=== PATIENT | female | born 1990 | race Caucasian/White ===

== ENCOUNTER 2018-11-19 18:57 | Inpatient (IN) | payer OTHER ==
[~2018-11-19] VITALS: Ht 170.2 cm; Wt 64.6 kg
--- NOTE | 2018-11-19 19:24 | NUR ---
Dr. Basim BINGHAM MD at bedside to evaluate pt.
--- NOTE | 2018-11-19 19:26 | NUR ---
Pt ambulated into department with c/o LUE swelling x 1 week. Pt stated that it started with a pimple on her face that she had tried to pick. It eventually spread to her chest and down her LUE. Her peers advised her to take some leftover KEFLEX that they had, and advised, "just take a few, you do not have to take the full amount". She is c/o pain PS 04/23 and is limited ROM in her LUE.
--- NOTE | 2018-11-19 19:28 | NUR ---
at bedside for eval
[2018-11-19] MEDS ORDERED: CLINDAMYCIN PHOSPHATE IV 600 MG in IV DEXTROSE 5% 100 ML IV ONE (19:45)
[2018-11-19] MEDS ORDERED: CLINDAMYCIN PHOSPHATE 600 MG/4 ML VIAL ONE (19:57)
[2018-11-19 19:58] LABS: BASOPHILS # (AUTO) 0.2 K/uL (0.0-8.0); BASOPHILS % (AUTO) 0.7 % (0.0-2.0); EOSINOPHILS # (AUTO) 0.1 K/uL (0.0-0.7); EOSINOPHILS % (AUTO) 0.5 % (0.0-7.0); HEMATOCRIT 33.3 % (31.2-41.9); LYMPHOCYTES # (AUTO) 2.1 K/uL (20.0-40.0); LYMPHOCYTES % (AUTO) 10.1 % (20.5-51.5); MEAN CORPUSCULAR HEMOGLOBIN 26.9 uug (24.7-32.8); MEAN CORPUSCULAR HGB CONC 33 g/dL (32.3-35.6); MEAN CORPUSCULAR VOLUME 81.3 fL (75.5-95.3); MONOCYTES # (AUTO) 1.6 K/uL (2.0-10.0); MONOCYTES % (AUTO) 7.3 % (0.0-11.0); NEUTROPHILS # (AUTO) 17.2 K/uL (1.8-8.9); NEUTROPHILS % (AUTO) 81.4 % (38.5-71.5); PLATELET COUNT (AUTO) 405 K/uL (179-408); RED BLOOD CELL COUNT(AUTO) 4.09 MIL/uL (3.63-4.92); WHITE BLOOD COUNT (AUTO) 21.1 K/uL (3.8-11.8)
[2018-11-19 20:13] LABS: CREATININE 0.8 mg/dL (0.6-1.3); POTASSIUM 3.9 mmol/L (3.5-5.1)
--- NOTE | 2018-11-19 20:23 | NUR ---
Pt tolerating IVATB Cleocin well. V/S stable. NAD.
[2018-11-19 20:28] LABS: BILIRUBIN,DIRECT 0.1 mg/dL (0.0-0.2); BILIRUBIN,TOTAL 0.3 mg/dL (0.2-1.0); TOTAL PROTEIN, SERUM 8.4 g/dL (6.4-8.2)
--- NOTE | 2018-11-19 21:03 | NUR ---
Per Dr. Stallworth, patient needs to be admitted to [facility] for cellulitis. Patient capitated to [facility] Pending transfer.
--- NOTE | 2018-11-19 21:36 | NUR ---
Dr. Stallworth on telephone speaking to ([facility])
--- NOTE | 2018-11-19 22:16 | NUR ---
Pt went down to radiology dept for CT scan.
--- NOTE | 2018-11-19 22:34 | NUR ---
Pt transported back from CT via w/c.
--- NOTE | 2018-11-19 23:06 | NUR ---
Spoke with Bianca from [facility] to get hold of MD on-call regarding pt transfer.
--- NOTE | 2018-11-19 23:12 | NUR ---
Dr. Stallworth spoke with Dr. Christina ([facility]) & was told that surgeon will call Dr. Stallworth next.
--- NOTE | 2018-11-19 23:17 | NUR ---
Per. Dr. Stallworth, patient WILL NOT be xfered to [facility] and will be admitted to [facility]. [facility] has been called and requested for panel call. Awaiting call back from Dr. Fiore.
--- NOTE | 2018-11-19 23:43 | NUR ---
Dr. Stallworth speaking to Dr. Fiore on telephone.
--- NOTE | 2018-11-19 23:57 | NUR ---
Spoke with Agnes from [facility] & received verbal authorization for pt to be admitted as inpatient.
[2018-11-20] MEDS ORDERED: Z GUARD REMEDY PASTE 57 GM TUBE TOP PRN
[2018-11-20] MEDS ORDERED: ONDANSETRON 4 MG/2 ML VIAL IV PRN
[2018-11-20] MEDS ORDERED: HYDROCODONE/APAP 5-325MG TABLET PO PRN
[2018-11-20] MEDS ORDERED: MAGNESIUM HYDROXIDE 30 ML LIQUID UDC PO PRN
[2018-11-20] MEDS ORDERED: ACETAMINOPHEN 325 MG TABLET PO PRN
--- NOTE | 2018-11-20 00:01 | NUR ---
Pt. admitted to Med/Surg, under care of Dr. Fiore Diagnosis: Cellulitis Belongs List completed
[2018-11-20 00:20] VITALS: BP 112/60
--- NOTE | 2018-11-20 00:40 | NUR ---
RECEIVED PT FROM ER VIA [facility]. PT SHOWS NO SIGNS OF ACUTE DISTRESS. IV INTACT. BELONGING LIST DONE.ADMISSION PROCESS AND CARE PLAN INITIATED. SENIOR CARE ASSESSMENT DONE. PHOTO TAKEN OF HER LEFT ARM AND RIGHT ARM. SAFETY AND COMFORT PROVIDED. WILL CONTINUE TO MONITOR.
[2018-11-20] MEDS: IV 1/2NS 1000 ML 1,000 ML IV PRN ×2 (01:31→17:27)
[2018-11-20 04:00] VITALS: BP 107/59
[2018-11-20] MEDS ORDERED: CLINDAMYCIN PHOSPHATE 900 MG/6 ML VIAL ONE (05:53)
[2018-11-20] MEDS: CLINDAMYCIN PHOSPHATE IV 900 MG in IV DEXTROSE 5% 100 ML IV SCH ×3 (06:10→23:17)
--- NOTE | 2018-11-20 06:15 | NUR ---
DR. TAMMIE PEREZ ORDERED NPO FOR THE PT. CONSENT FOR INCISION AND DRAINAGE OF ABSCESS ON LEFT UPPER EXTREMITY. CHARGE NURSE AWARE. PT STABLE. WILL CONTINUE TO MONITOR.
[2018-11-20 06:47] LABS: BASOPHILS # (AUTO) 0.1 K/uL (0.0-8.0); BASOPHILS % (AUTO) 0.3 % (0.0-2.0); EOSINOPHILS # (AUTO) 0.2 K/uL (0.0-0.7); EOSINOPHILS % (AUTO) 0.8 % (0.0-7.0); HEMATOCRIT 32.5 % (31.2-41.9); LYMPHOCYTES # (AUTO) 1.5 K/uL (20.0-40.0); MEAN CORPUSCULAR HEMOGLOBIN 27.4 uug (24.7-32.8); MEAN CORPUSCULAR HGB CONC 34 g/dL (32.3-35.6); MEAN CORPUSCULAR VOLUME 81.1 fL (75.5-95.3); MONOCYTES # (AUTO) 1.7 K/uL (2.0-10.0); MONOCYTES % (AUTO) 7.7 % (0.0-11.0); NEUTROPHILS # (AUTO) 18.7 K/uL (1.8-8.9); NEUTROPHILS % (AUTO) 84.2 % (38.5-71.5); PLATELET COUNT (AUTO) 332 K/uL (179-408); WHITE BLOOD COUNT (AUTO) 22.2 K/uL (3.8-11.8)
--- NOTE | 2018-11-20 06:49 | NUR ---
PT SLEPT THROUGHOUT THE SHIFT. PT SHOWS NO SIGNS OF ACUTE DISTRESS, IV INTACT. PRESCRIBED MEDICATION GIVEN AND PT TOLERATED IT WELL. CALL LIGHT WITHIN REACH. SAFETY AND COMFORT PROVIDED. ALL NEEDS ARE MET. WILL ENDORSE ACCORDINGLY TO INCOMING NURSE FOR CONTINUITY OF CARE.
[2018-11-20 07:00] LABS: BILIRUBIN,TOTAL 0.4 mg/dL (0.2-1.0); CREATININE 0.8 mg/dL (0.6-1.3); MAGNESIUM 1.9 mg/dL (1.8-2.4); POTASSIUM 3.8 mmol/L (3.5-5.1); TOTAL PROTEIN, SERUM 7.4 g/dL (6.4-8.2)
--- NOTE | 2018-11-20 07:30 | NUR ---
PATIENT RECEIVED IN BED SLEEPING, EASILY AROUSABLE. PT SHOWS NO SIGNS OF ACUTE DISTRESS, DENIES PAIN AT THIS TIME. IV INTACT. CALL LIGHT WITHIN REACH. SAFETY AND COMFORT PROVIDED. ALL NEEDS ARE MET.
[2018-11-20 07:47] LABS: EOSINOPHILS % (MANUAL) 1 % (0-8); LYMPHOCYTES % (MANUAL) 8 % (20-40); MONOCYTES % (MANUAL) 7 % (2-10); NEUTROPHILS % (MANUAL) 84 % (42-75)
[2018-11-20 11:10] VITALS: BP 104/48
--- NOTE | 2018-11-20 13:10 | NUR ---
CALLED SURGERY TO FIND OUT THEN THE INCISION AND DRAINAGE PROCEDURE WAS TO BE DONE. NURSE STATED THAT THE PROCEDURE WAS POSTPONED UNTIL TOMORROW AT 6AM. SPOKE TO IRWIN MARTINEZ AND SHE STATED OK FOR REGULAR DIET NOW AND NPO AFTER MN TONIGHT.
--- NOTE | 2018-11-20 15:00 | NUR ---
DR. PEREZ CAME IN TO SEE THE PATIENT AND STATED THAT HE WILL NOT BE DOING THE SURGERY. HE IS RECOMENDING FOR PATIENT TO BE SEEN BY [facility]. DR. PEREZ STATED THAT HE SPOKE TO DR. VILLANUEVA REGARDING THIS PATIENT. DR. PEREZ ALSO SPOKE TO DR. LEVINE AND HE IS TO SEE THIS PATIENT.
[2018-11-20 15:05] VITALS: BP 114/48
--- NOTE | 2018-11-20 18:51 | NUR ---
PT.AOX4 THROUGHOUT THE SHIFT. COMPLIANT WITH ALL CARE. PT SHOWS NO SIGNS OF ACUTE DISTRESS. LT. FA USES PUSS. PRESCRIBED MEDICATION GIVEN AND PT TOLERATED IT WELL. CALL LIGHT WITHIN REACH. SAFETY AND COMFORT PROVIDED. ALL NEEDS ARE MET. WILL ENDORSE ACCORDINGLY TO INCOMING NURSE FOR CONTINUITY OF CARE.
--- NOTE | 2018-11-20 19:26 | NUR ---
Received pt sitting up in bed, awake alert and oriented x4. Discussed and reviewed plan of care with pt, pt verbalizes understanding. IV intact and patent. Offered order of IV fluids, pt refused at this time. Pt c/o of pain 8/10 on pain scale, pain management noted during shift. Comfort measures in place. Call light within reach. Will continue to monitor.
[2018-11-20 20:00] VITALS: BP 113/54
--- NOTE | 2018-11-20 20:30 | NUR ---
Pt seen by DR. WISEMAN. provided wound care, clean with NS, packed with xeroform and cover with gauze, wrap with kerlix for reinforcement. No new orders at this time.
[2018-11-21] MEDS: CLINDAMYCIN PHOSPHATE IV 900 MG in IV DEXTROSE 5% 100 ML IV SCH ×2 (06:33→14:23)
[2018-11-21 06:38] VITALS: BP 100/50
--- NOTE | 2018-11-21 06:46 | NUR ---
Pt slept well t/o the night, arousable during initial rounds. Pt has no complaints at this time. No acute distress noted. Left arm elevated at all times, warm compress applied as directed. Antibiotic therapy carried out. Continuous IVF running. Safety and comfort measures maintained at all times. Call light within reach. Will endorse plan of care to day shift nurse.
--- NOTE | 2018-11-21 07:44 | NUR ---
Patient noted resting in bed with eyes closed, no facial cues of pain noted, no signs of distress noted, call light in reach bed locked and in lowest position, all needs met at this time
[2018-11-21 11:37] VITALS: BP 107/44
--- NOTE | 2018-11-21 14:38 | NUR ---
IV antibiotic given at this time, no complaints of pain at this time, no signs of distress noted, will continue to monitor
[2018-11-21 15:40] VITALS: BP 120/59
== END 2018-11-21 18:00 | disposition left against medical advice (07) | DRG 720 ==
LOC: ER 18:59 → MED 11-20 00:02
PROVIDERS: ADMIT Internal Medicine; ATTEND Internal Medicine
DX: A41.9 Sepsis, unspecified organism (principal); F17.210 Nicotine dependence, cigarettes, uncomplicated; L03.114 Cellulitis of left upper limb; B95.0 Streptococcus, group A, as the cause of diseases classified elsewhere; B95.61 Methicillin susceptible Staphylococcus aureus infection as the cause of diseases classified elsewhere; L02.424 Furuncle of left upper limb; L02.423 Furuncle of right upper limb; L02.02 Furuncle of face; L02.223 Furuncle of chest wall; Z88.1 Allergy status to other antibiotic agents; L73.9 Follicular disorder, unspecified; L03.113 Cellulitis of right upper limb; L02.414 Cutaneous abscess of left upper limb
CPT/HCPCS: 36415; 70030-TC; 73070; 73200; 83605; 83735; 84100; 85025; 85651; 85730; 87040; 87070; 87077; A4663; G0378; J3490; J7060

== ENCOUNTER 2018-11-22 21:27 | Emergency (ER) | payer OTHER ==
[~2018-11-22] VITALS: Ht 170.2 cm; Wt 63.5 kg
--- NOTE | 2018-11-22 21:45 | NUR ---
Pt ambulated in ER with stable gait with the c/o left upper arm wound. Pt states that she left [facility] yesterday.
--- NOTE | 2018-11-22 23:36 | NUR ---
Dr. Stallworth at bedside for MSE.
[2018-11-23] MEDS ORDERED: CLINDAMYCIN PHOSPHATE 600 MG/4 ML VIAL ONE (00:01)
[2018-11-23] MEDS: CLINDAMYCIN PHOSPHATE IV 600 MG in IV DEXTROSE 5% 100 ML IV ONE (00:04)
--- NOTE | 2018-11-23 00:04 | NUR ---
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 Clindamycin IV placed on pump and will continue to monitor and observe patient closely.
[2018-11-23 00:11] LABS: BASOPHILS # (AUTO) 0.1 K/uL (0.0-8.0); BASOPHILS % (AUTO) 0.9 % (0.0-2.0); EOSINOPHILS # (AUTO) 0.4 K/uL (0.0-0.7); EOSINOPHILS % (AUTO) 5.4 % (0.0-7.0); HEMATOCRIT 31.3 % (31.2-41.9); HEMOGLOBIN 10.2 g/dL (10.9-14.3); LYMPHOCYTES # (AUTO) 2.5 K/uL (20.0-40.0); LYMPHOCYTES % (AUTO) 33.4 % (20.5-51.5); MEAN CORPUSCULAR HEMOGLOBIN 26.6 uug (24.7-32.8); MEAN CORPUSCULAR HGB CONC 33 g/dL (32.3-35.6); MEAN CORPUSCULAR VOLUME 81.7 fL (75.5-95.3); MONOCYTES # (AUTO) 0.6 K/uL (2.0-10.0); NEUTROPHILS % (AUTO) 52.3 % (38.5-71.5); PLATELET COUNT (AUTO) 433 K/uL (179-408); RED BLOOD CELL COUNT(AUTO) 3.84 MIL/uL (3.63-4.92); WHITE BLOOD COUNT (AUTO) 7.6 K/uL (3.8-11.8)
[2018-11-23 00:28] LABS: CREATININE 0.6 mg/dL (0.6-1.3); POTASSIUM 3.6 mmol/L (3.5-5.1)
--- NOTE | 2018-11-23 00:30 | NUR ---
Patient tolerating Clindamycin at this time, no s/s of adverse reactions noted.
[2018-11-23 00:43] LABS: BILIRUBIN,DIRECT 0.1 mg/dL (0.0-0.2); BILIRUBIN,TOTAL 0.1 mg/dL (0.2-1.0); TOTAL PROTEIN, SERUM 7.8 g/dL (6.4-8.2)
--- NOTE | 2018-11-23 01:15 | NUR ---
Per Dr. Stallworth, patient will be transferred to [facility] under the care of Dr. Buenrostro. Patient made aware of plan of care.
--- NOTE | 2018-11-23 02:00 | NUR ---
Ambulnz trip # [id number] Patient will be going to room 259 in [facility] under care of Dr. Buenrostro. Report given to Aimee HART. Patient made aware.
--- NOTE | 2018-11-23 03:12 | NUR ---
Report given to Ulices MENENDEZ. [facility] FA [facility] g.
--- NOTE | 2018-11-23 03:15 | NUR ---
All belongings taken.
== END 2018-11-23 03:17 | disposition short-term general hospital (02) ==
LOC: ER 21:35
DX: L03.113 Cellulitis of right upper limb (principal); F17.200 Nicotine dependence, unspecified, uncomplicated; Z88.1 Allergy status to other antibiotic agents
CPT/HCPCS: 36415; 80048; 80076; 85025; 96365; 99285; J3490; J7060; A4663

== ENCOUNTER 2024-07-04 21:41 | Inpatient (IN) | payer MEDICAID, OTHER ==
[~2024-07-04] VITALS: Ht 170.2 cm; Wt 79.4 kg
[2024-07-04] MEDS: IV NORMAL SALINE 1000 ML BAG IV ONE (22:45)
[2024-07-04] MEDS: PIPERACILLIN SODIUM/TAZOBACTAM 3.375 G in IV DEXTROSE 5% 50 ML IV ONE (22:45)
[2024-07-04 23:07] LABS: BASOPHILS % (AUTO) 0.2 % (0.0-2.0); EOSINOPHILS # (AUTO) 0.2 K/uL (0.0-0.7); EOSINOPHILS % (AUTO) 0.9 % (0.0-7.0); HEMATOCRIT 28.7 % (31.2-41.9); HEMOGLOBIN 9.3 g/dL (10.9-14.3); LYMPHOCYTES # (AUTO) 2.1 K/uL (0.8-4.8); LYMPHOCYTES % (AUTO) 10.4 % (20.5-51.5); MEAN CORPUSCULAR HEMOGLOBIN 26.6 uug (24.7-32.8); MEAN CORPUSCULAR HGB CONC 33 g/dL (32.3-35.6); MONOCYTES # (AUTO) 1.4 K/uL (0.1-1.30); MONOCYTES % (AUTO) 6.7 % (0.0-11.0); NEUTROPHILS # (AUTO) 16.4 K/uL (1.8-8.9); NEUTROPHILS % (AUTO) 81.8 % (38.5-71.5); PLATELET COUNT (AUTO) 383 K/uL (179-408); RED CELL DISTRIBUTION WIDTH 14.4 % (12.3-17.7); WHITE BLOOD COUNT (AUTO) 20.1 K/uL (3.8-11.8)
[2024-07-04 23:11] LABS: CALCIUM 8.8 mg/dL (8.5-10.1); CREATININE 0.6 mg/dL (0.6-1.3); POTASSIUM 4.4 mmol/L (3.5-5.1)
[2024-07-04 23:12] LABS: DIFFERENTIAL COMMENT 1
[2024-07-04 23:17] LABS: ALBUMIN 1.7 g/dL (3.4-5.0); BILIRUBIN,DIRECT 0.1 mg/dL (0.0-0.2); BILIRUBIN,TOTAL 0.3 mg/dL (0.2-1.0); TOTAL PROTEIN, SERUM 6.9 g/dL (6.4-8.2)
[2024-07-05] MEDS ORDERED: LIDOCAINE 2%-EPI 1:100,000 20 ML VIAL ONE (00:33)
[2024-07-05] MEDS: LIDOCAINE 2%-EPI 1:100,000 20 ML VIAL IJ ONE (00:45)
[2024-07-05 01:06] LABS: LYMPHOCYTES % (MANUAL) 15 % (20-40); MONOCYTES % (MANUAL) 4 % (2-10); NEUTROPHILS % (MANUAL) 81 % (42-75)
[2024-07-05 01:07] LABS: PLATELET ESTIMATE ADEQUATE
[2024-07-05] MEDS ORDERED: REMEDY ESSENTIAL ZINC PASTE 113 GM TP PRN (02:00)
[2024-07-05] MEDS ORDERED: MAGNESIUM HYDROXIDE 30 ML LIQUID UDC PO PRN (02:00)
[2024-07-05] MEDS ORDERED: ACETAMINOPHEN 325 MG TABLET PO PRN (02:00)
[2024-07-05] MEDS: PIPERACILLIN SODIUM/TAZOBACTAM 3.375 G in IV DEXTROSE 5% 50 ML IV SCH (06:00)
[2024-07-05 06:48] LABS: BASOPHILS % (AUTO) 0.1 % (0.0-2.0); EOSINOPHILS # (AUTO) 0.2 K/uL (0.0-0.7); EOSINOPHILS % (AUTO) 0.9 % (0.0-7.0); HEMOGLOBIN 8.8 g/dL (10.9-14.3); LYMPHOCYTES # (AUTO) 2.5 K/uL (0.8-4.8); LYMPHOCYTES % (AUTO) 11.8 % (20.5-51.5); MEAN CORPUSCULAR HEMOGLOBIN 26.7 uug (24.7-32.8); MEAN CORPUSCULAR HGB CONC 33 g/dL (32.3-35.6); MONOCYTES # (AUTO) 1.1 K/uL (0.1-1.30); MONOCYTES % (AUTO) 5.4 % (0.0-11.0); NEUTROPHILS # (AUTO) 17.2 K/uL (1.8-8.9); NEUTROPHILS % (AUTO) 81.8 % (38.5-71.5); PLATELET COUNT (AUTO) 394 K/uL (179-408); RED BLOOD CELL COUNT(AUTO) 3.29 MIL/uL (3.63-4.92); RED CELL DISTRIBUTION WIDTH 14.3 % (12.3-17.7)
[2024-07-05] MEDS: PANTOPRAZOLE SODIUM 40 MG TABLET.DR PO SCH (07:00)
[2024-07-05 07:03] LABS: DIFFERENTIAL COMMENT 1
[2024-07-05 07:04] LABS: ALBUMIN 1.6 g/dL (3.4-5.0); CALCIUM 8.6 mg/dL (8.5-10.1); CREATININE 0.7 mg/dL (0.6-1.3); MAGNESIUM 1.8 mg/dL (1.8-2.4); PHOSPHOROUS 3.3 mg/dL (2.5-4.9); POTASSIUM 3.7 mmol/L (3.5-5.1)
[2024-07-05 07:17] LABS: THYROID STIMULATING HORMONE 0.393 mIU/mL (0.358-3.740)
[2024-07-05 08:00] VITALS: BP 110/62; TEMP 97.7
[2024-07-05 09:20] VITALS: BP 134/69; TEMP 97.7; O2SAT 94
[2024-07-05] MEDS: PIPERACILLIN SODIUM/TAZOBACTAM 3.375 G in IV DEXTROSE 5% 100 ML IV SCH (09:30)
[2024-07-05 11:43] VITALS: BP 113/54; TEMP 97.9; O2SAT 97
[2024-07-05 12:26] LABS: IRON, SERUM 26 ug/dL (50-175)
[2024-07-05] MEDS: LINEZOLID IV 600 MG in PREMIXED 1 EACH IV SCH (13:04)
[2024-07-05] MEDS: PROTEIN SUPPLEMENT (PROSTAT) 30 ML LIQUID PO SCH (13:05)
[2024-07-05 16:05] VITALS: BP 112/66; TEMP 98.6; O2SAT 98
[2024-07-05 20:38] VITALS: BP 107/56; TEMP 98.1; O2SAT 98
[2024-07-05] MEDS: CLINDAMYCIN PHOSPHATE IV 600 MG in IV DEXTROSE 5% 100 ML IV SCH (21:29)
[2024-07-06 05:41] VITALS: BP 109/77; TEMP 98; O2SAT 99
[2024-07-06 06:43] LABS: BASOPHILS % (AUTO) 0.2 % (0.0-2.0); EOSINOPHILS # (AUTO) 0.2 K/uL (0.0-0.7); EOSINOPHILS % (AUTO) 0.8 % (0.0-7.0); HEMATOCRIT 25.8 % (31.2-41.9); HEMOGLOBIN 8.4 g/dL (10.9-14.3); LYMPHOCYTES # (AUTO) 2.3 K/uL (0.8-4.8); LYMPHOCYTES % (AUTO) 11.8 % (20.5-51.5); MEAN CORPUSCULAR HEMOGLOBIN 26.7 uug (24.7-32.8); MEAN CORPUSCULAR HGB CONC 33 g/dL (32.3-35.6); MEAN CORPUSCULAR VOLUME 81.8 fL (75.5-95.3); MONOCYTES # (AUTO) 1.4 K/uL (0.1-1.30); MONOCYTES % (AUTO) 7.3 % (0.0-11.0); NEUTROPHILS # (AUTO) 15.2 K/uL (1.8-8.9); NEUTROPHILS % (AUTO) 79.9 % (38.5-71.5); PLATELET COUNT (AUTO) 410 K/uL (179-408); RED BLOOD CELL COUNT(AUTO) 3.16 MIL/uL (3.63-4.92); RED CELL DISTRIBUTION WIDTH 14.4 % (12.3-17.7)
[2024-07-06 06:51] LABS: DIFFERENTIAL COMMENT 1
[2024-07-06 07:05] LABS: CREATININE 0.6 mg/dL (0.6-1.3); MAGNESIUM 1.9 mg/dL (1.8-2.4); PHOSPHOROUS 3.1 mg/dL (2.5-4.9); POTASSIUM 3.8 mmol/L (3.5-5.1)
[2024-07-06 08:00] VITALS: BP 134/75; TEMP 98.4; O2SAT 99
[2024-07-06 11:43] VITALS: BP 136/78; TEMP 97.7; O2SAT 98
[2024-07-06] MEDS: CLINDAMYCIN PHOSPHATE IV 600 MG in IV DEXTROSE 5% 50 ML IV SCH (13:06)
[2024-07-06] MEDS: diphenhydrAMINE 50 MG CAPSULE PO PRN (14:21)
[2024-07-06 16:05] VITALS: BP 104/58; TEMP 97.6; O2SAT 96
[2024-07-07 07:07] LABS: CALCIUM 8.7 mg/dL (8.5-10.1); CREATININE 0.7 mg/dL (0.6-1.3); MAGNESIUM 2.2 mg/dL (1.8-2.4); PHOSPHOROUS 3.9 mg/dL (2.5-4.9); POTASSIUM 4.1 mmol/L (3.5-5.1)
[2024-07-07 07:22] LABS: BASOPHILS % (AUTO) 0.2 % (0.0-2.0); DIFFERENTIAL COMMENT 0; EOSINOPHILS # (AUTO) 0.3 K/uL (0.0-0.7); EOSINOPHILS % (AUTO) 2.4 % (0.0-7.0); HEMATOCRIT 28.2 % (31.2-41.9); HEMOGLOBIN 9.2 g/dL (10.9-14.3); LYMPHOCYTES # (AUTO) 2.9 K/uL (0.8-4.8); LYMPHOCYTES % (AUTO) 22.1 % (20.5-51.5); MEAN CORPUSCULAR HEMOGLOBIN 26.9 uug (24.7-32.8); MEAN CORPUSCULAR HGB CONC 33 g/dL (32.3-35.6); MEAN CORPUSCULAR VOLUME 82.3 fL (75.5-95.3); MONOCYTES % (AUTO) 7.4 % (0.0-11.0); NEUTROPHILS # (AUTO) 8.9 K/uL (1.8-8.9); NEUTROPHILS % (AUTO) 67.9 % (38.5-71.5); PLATELET COUNT (AUTO) 509 K/uL (179-408); RED BLOOD CELL COUNT(AUTO) 3.43 MIL/uL (3.63-4.92); RED CELL DISTRIBUTION WIDTH 14.5 % (12.3-17.7); WHITE BLOOD COUNT (AUTO) 13.2 K/uL (3.8-11.8)
[2024-07-07 12:00] VITALS: BP 100/51; TEMP 97.2; O2SAT 97
[2024-07-07 15:59] VITALS: BP 109/50; TEMP 97.8; O2SAT 97
[2024-07-07 20:23] VITALS: BP 119/76; TEMP 97.8; O2SAT 98
[2024-07-08 05:26] VITALS: BP 122/71; TEMP 97.7; O2SAT 96
[2024-07-08 06:49] LABS: BASOPHILS % (AUTO) 0.2 % (0.0-2.0); EOSINOPHILS # (AUTO) 0.3 K/uL (0.0-0.7); EOSINOPHILS % (AUTO) 1.9 % (0.0-7.0); HEMATOCRIT 27.6 % (31.2-41.9); HEMOGLOBIN 9.1 g/dL (10.9-14.3); LYMPHOCYTES # (AUTO) 2.6 K/uL (0.8-4.8); LYMPHOCYTES % (AUTO) 17.9 % (20.5-51.5); MEAN CORPUSCULAR HEMOGLOBIN 27.1 uug (24.7-32.8); MEAN CORPUSCULAR HGB CONC 33 g/dL (32.3-35.6); MEAN CORPUSCULAR VOLUME 81.8 fL (75.5-95.3); MONOCYTES # (AUTO) 1.1 K/uL (0.1-1.30); MONOCYTES % (AUTO) 7.5 % (0.0-11.0); NEUTROPHILS # (AUTO) 10.6 K/uL (1.8-8.9); NEUTROPHILS % (AUTO) 72.5 % (38.5-71.5); PLATELET COUNT (AUTO) 533 K/uL (179-408); RED BLOOD CELL COUNT(AUTO) 3.37 MIL/uL (3.63-4.92); RED CELL DISTRIBUTION WIDTH 14.3 % (12.3-17.7); WHITE BLOOD COUNT (AUTO) 14.7 K/uL (3.8-11.8)
[2024-07-08 07:06] LABS: DIFFERENTIAL COMMENT 1
[2024-07-08 07:17] LABS: CALCIUM 9.1 mg/dL (8.5-10.1); CREATININE 0.7 mg/dL (0.6-1.3); MAGNESIUM 1.7 mg/dL (1.8-2.4); PHOSPHOROUS 4.6 mg/dL (2.5-4.9); POTASSIUM 4.1 mmol/L (3.5-5.1)
[2024-07-08] MEDS: MAGNESIUM OXIDE 400 MG TABLET PO ONE ×2 (10:20→10:35)
[2024-07-08 11:31] VITALS: BP 121/79; TEMP 97.3; O2SAT 96
[2024-07-08 15:41] VITALS: BP 111/63; TEMP 97.9; O2SAT 98
[2024-07-08 16:00] VITALS: BP 101/53; TEMP 98.2; O2SAT 97
[2024-07-08] MEDS: ACIDOPHILUS/BULGARICUS CHEW TAB GT SCH (17:58)
[2024-07-08 20:00] VITALS: BP 119/67; TEMP 98; O2SAT 97
[2024-07-09 06:00] VITALS: BP 111/61; TEMP 98.1; O2SAT 96
[2024-07-09 07:52] LABS: BASOPHILS % (AUTO) 0.1 % (0.0-2.0); EOSINOPHILS # (AUTO) 0.3 K/uL (0.0-0.7); EOSINOPHILS % (AUTO) 1.7 % (0.0-7.0); HEMATOCRIT 27.4 % (31.2-41.9); HEMOGLOBIN 8.9 g/dL (10.9-14.3); LYMPHOCYTES # (AUTO) 2.4 K/uL (0.8-4.8); LYMPHOCYTES % (AUTO) 13.4 % (20.5-51.5); MEAN CORPUSCULAR HEMOGLOBIN 26.7 uug (24.7-32.8); MEAN CORPUSCULAR HGB CONC 33 g/dL (32.3-35.6); MEAN CORPUSCULAR VOLUME 81.9 fL (75.5-95.3); MONOCYTES % (AUTO) 5.9 % (0.0-11.0); NEUTROPHILS # (AUTO) 13.9 K/uL (1.8-8.9); NEUTROPHILS % (AUTO) 78.9 % (38.5-71.5); PLATELET COUNT (AUTO) 581 K/uL (179-408); RED BLOOD CELL COUNT(AUTO) 3.34 MIL/uL (3.63-4.92); RED CELL DISTRIBUTION WIDTH 14.4 % (12.3-17.7); WHITE BLOOD COUNT (AUTO) 17.6 K/uL (3.8-11.8)
[2024-07-09 08:02] LABS: ALBUMIN 1.8 g/dL (3.4-5.0); BILIRUBIN,TOTAL 0.3 mg/dL (0.2-1.0); CALCIUM 9.3 mg/dL (8.5-10.1); CREATININE 0.7 mg/dL (0.6-1.3); PHOSPHOROUS 4.6 mg/dL (2.5-4.9); POTASSIUM 4.2 mmol/L (3.5-5.1); TOTAL PROTEIN, SERUM 7.7 g/dL (6.4-8.2)
[2024-07-09 08:17] LABS: DIFFERENTIAL COMMENT 1
[2024-07-09 11:16] VITALS: BP 120/68; TEMP 98.1; O2SAT 96
[2024-07-09] MEDS: DAPTOMYCIN 500 MG in IV NORMAL SALINE 50 ML IV SCH (13:16)
[2024-07-09 14:03] LABS: *OCCULT BLOOD STOOL NEGATIVE (NEGATIVE)
[2024-07-09 14:57] VITALS: BP 120/69; TEMP 98; O2SAT 95
[2024-07-09] MEDS: MULTIVITAMINS,THERAPEUTIC TABLET PO SCH (17:43)
[2024-07-09 20:00] VITALS: BP 140/85; TEMP 98.6; O2SAT 96
[2024-07-09] MEDS: ACIDOPHILUS/BULGARICUS CHEW TAB PO SCH (21:04)
[2024-07-09] MEDS: CEFTRIAXONE 1 G in IV DEXTROSE 5% 50 ML IV SCH (21:30)
[2024-07-10 06:00] VITALS: BP 126/72; TEMP 97.3; O2SAT 95
[2024-07-10 07:53] VITALS: BP 120/65; TEMP 98.7; O2SAT 96
[2024-07-10 08:10] LABS: BASOPHILS % (AUTO) 0.3 % (0.0-2.0); EOSINOPHILS # (AUTO) 0.2 K/uL (0.0-0.7); HEMATOCRIT 27.1 % (31.2-41.9); HEMOGLOBIN 8.8 g/dL (10.9-14.3); LYMPHOCYTES # (AUTO) 2.1 K/uL (0.8-4.8); LYMPHOCYTES % (AUTO) 12.9 % (20.5-51.5); MEAN CORPUSCULAR HEMOGLOBIN 26.7 uug (24.7-32.8); MEAN CORPUSCULAR HGB CONC 33 g/dL (32.3-35.6); MEAN CORPUSCULAR VOLUME 81.8 fL (75.5-95.3); MONOCYTES % (AUTO) 6.3 % (0.0-11.0); NEUTROPHILS # (AUTO) 13.1 K/uL (1.8-8.9); NEUTROPHILS % (AUTO) 79.5 % (38.5-71.5); PLATELET COUNT (AUTO) 541 K/uL (179-408); RED BLOOD CELL COUNT(AUTO) 3.31 MIL/uL (3.63-4.92); RED CELL DISTRIBUTION WIDTH 14.7 % (12.3-17.7); WHITE BLOOD COUNT (AUTO) 16.5 K/uL (3.8-11.8)
[2024-07-10 08:22] LABS: *RHEUMATOID FACTOR SCREEN NEGATIVE (NEGATIVE)
[2024-07-10 08:25] LABS: DIFFERENTIAL COMMENT 1
[2024-07-10 08:51] LABS: CREATININE 0.8 mg/dL (0.6-1.3); MAGNESIUM 1.8 mg/dL (1.8-2.4); PHOSPHOROUS 3.6 mg/dL (2.5-4.9); POTASSIUM 4.2 mmol/L (3.5-5.1)
[2024-07-10 08:52] LABS: C-REACTIVE PROTEIN 3.12 mg/dL (0.00-0.30)
[2024-07-10 11:21] VITALS: BP 129/85; TEMP 98.2; O2SAT 98
[2024-07-10 16:17] VITALS: BP 120/63; TEMP 98.5; O2SAT 98
[2024-07-10 19:00] VITALS: BP 135/88; TEMP 98; O2SAT 91
[2024-07-11 08:10] LABS: *IMMUNOGLOBULIN G, SERUM 1587 mg/dL (586-1602); IMMUNOGLOBULIN A, SERUM 255 mg/dL (87-352); IMMUNOGLOBULIN M, SERUM 131 mg/dL (26-217)
[2024-07-11 10:06] LABS: *ANTI-SCLERODERMA-70 AB <0.2 AI (0.0-0.9); *RNP ANTIBODIES <0.2 AI (0.0-0.9); *SJOGREN'S ANTI-SS-A <0.2 AI (0.0-0.9); *SJOGREN'S ANTI-SS-B <0.2 AI (0.0-0.9); *SMITH ANTIBODIES <0.2 AI (0.0-0.9); ANTI-DNA(DS) AB, QN <1 IU/mL (0-9); ANTI-NUCLEAR AB DIRECT Negative (Negative)
[2024-07-11 11:07] LABS: FOLATE (FOLIC ACID), SERUM 9.5 ng/mL (>3.0)
[2024-07-11 12:07] LABS: FREE KAPPA LT CHAINS SERUM 45.4 mg/L (3.3-19.4); FREE LAMBDA LT CHAIN SERUM 32.3 mg/L (5.7-26.3); KAPPA/LAMBDA RATIO SERUM 1.41 (0.26-1.65)
[2024-07-14 07:08] LABS: A/G RATIO 0.5 (0.7-1.7); ALBUMIN 2.1 g/dL (2.9-4.4); ALPHA-1-GLOBULIN 0.4 g/dL (0.0-0.4); ALPHA-2-GLOBULIN 1.2 g/dL (0.4-1.0); BETA GLOBULIN 1.2 g/dL (0.7-1.3); GAMMA GLOBULIN 1.4 g/dL (0.4-1.8); GLOBULIN, TOTAL 4.3 g/dL (2.2-3.9); M-SPIKE Not Observed g/dL (Not Observed); PROTEIN, TOTAL 6.4 g/dL (6.0-8.5)
== END 2024-07-10 21:40 | disposition left against medical advice (07) | DRG 566 ==
LOC: ER 21:41 → MEDSURG3 07-05 08:03
PROVIDERS: ADMIT Nurse Practitioner Family; ATTEND Nurse Practitioner Acute Care
PROC: 05HC33Z Insertion of Infusion Device into Left Basilic Vein, Percutaneous Approach (ICD-10-PCS; principal; 2024-07-05)
DX: O98.812 Other maternal infectious and parasitic diseases complicating pregnancy, second trimester (principal); A41.9 Sepsis, unspecified organism; E43 Unspecified severe protein-calorie malnutrition; D63.8 Anemia in other chronic diseases classified elsewhere; E88.09 Other disorders of plasma-protein metabolism, not elsewhere classified; E87.1 Hypo-osmolality and hyponatremia; L03.116 Cellulitis of left lower limb; L97.828 Non-pressure chronic ulcer of other part of left lower leg with other specified severity; J20.9 Acute bronchitis, unspecified; J42 Unspecified chronic bronchitis; Z53.29 Procedure and treatment not carried out because of patient's decision for other reasons; O25.12 Malnutrition in pregnancy, second trimester; D75.839 Thrombocytosis, unspecified; E83.42 Hypomagnesemia; O99.012 Anemia complicating pregnancy, second trimester; O99.212 Obesity complicating pregnancy, second trimester; R60.0 Localized edema; D50.9 Iron deficiency anemia, unspecified; S81.812A Laceration without foreign body, left lower leg, initial encounter; W22.8XXA Striking against or struck by other objects, initial encounter; Y92.830 Public park as the place of occurrence of the external cause; Z3A.00 Weeks of gestation of pregnancy not specified; Z59.01 Sheltered homelessness; Z88.1 Allergy status to other antibiotic agents; O99.322 Drug use complicating pregnancy, second trimester; F19.10 Other psychoactive substance abuse, uncomplicated; O99.342 Other mental disorders complicating pregnancy, second trimester; D53.9 Nutritional anemia, unspecified
CPT/HCPCS: 36415; 70030-TC; 82746; 82784; 83550; 83605; 83735; 84100; 84155; 84165; 84443; 85025; 85651; 86038; 86140; 86334; 86430; 87040; A4663; G0378; J0696; J0878; J2020; J2543; J3490; Q0163